=== PATIENT | female | born 1985 | race Caucasian/White ===

== ENCOUNTER 2016-07-31 16:38 | Emergency (ER) | payer BC ==
[~2016-07-31] VITALS: Ht 167.6 cm; Wt 53.0 kg
[~2016-07-31 16:38] MED LIST: BIOT10TA PO; CALNTAB PO; PROG100C PO; VITA100T15 PO
[2016-07-31 16:44] VITALS: BP 132/100; PULSE 88; RESP 16; TEMP 99.2; O2SAT 98
[2016-07-31] MEDS ORDERED: CLIN1CAP6 PO (17:49)
[2016-07-31] MEDS ORDERED: ZOFR4TAB3 SL (17:49)
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
[2016-07-31 17:58] VITALS: BP 137/95
[2016-07-31] MEDS ORDERED: ONDANSETRON ODT 4 MG TAB PO ONE (18:00)
== END 2016-07-31 18:34 | disposition home or self-care (01) ==
LOC: PHED 16:38
DX: N61.1 Abscess of the breast and nipple (principal); T63.30 Toxic effect of unspecified spider venom; T63.301D Toxic effect of unspecified spider venom, accidental (unintentional), subsequent encounter
CPT/HCPCS: 84703; 99283

== ENCOUNTER 2017-01-26 01:51 | Emergency (ER) | payer BC, OTHER ==
[~2017-01-26] VITALS: Ht 170.2 cm; Wt 50.9 kg
[~2017-01-26 01:51] MED LIST changes: +CLIN1CAP6 PO; +ZOFR4TAB3 SL
[2017-01-26 02:03] VITALS: BP 161/112; PULSE 82; RESP 18; TEMP 98.7; O2SAT 97
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
[2017-01-26] MEDS ORDERED: TETANUS/DIPHTHERIA TOXOID ADULT 0.5 ML VIAL IM ONE (02:30)
[2017-01-26 03:20] LABS: BASOPHIL # 0.1 TH/MM3 (0-0.2); BASOPHIL % 1.3 % (0.0-2.0); EOSINOPHIL # 0.1 TH/MM3 (0-0.4); HEMATOCRIT 43.3 % (35.0-46.0); HEMO FLAGS DIFF FINAL; LYMPH % 39.6 % (9.0-44.0); LYMPHOCYTE # 2.4 TH/MM3 (1.0-4.8); MEAN CELL VOLUME 98.6 FL (80.0-100.0); MEAN CORPUSCULAR HEMOGLOBIN 33.9 PG (27.0-34.0); MEAN CORPUSCULAR HGB CONC 34.4 % (32.0-36.0); MONO % 7.1 % (0.0-8.0); PLATELET COUNT 311 TH/MM3 (150-450); RED BLOOD COUNT 4.39 MIL/MM3 (4.00-5.30); RED CELL DISTRIBUTION WIDTH 12.4 % (11.6-17.2)
[2017-01-26 03:23] LABS: BACTERIA, URINE MOD /hpf; BLOOD, URINE SMALL (NEG); COMMENT (UR) CULTURE INDICATED; CULTURE IF INDICATED CULTURE INDICATED; GLUCOSE,URINE NEG (NEG); KETONE, URINE NEG (NEG); MUCUS URINE FEW /lpf (OCC); NITRITE,URINE NEG (NEG); PH, URINE 6.5 (5.0-8.5); SQUAMOUS EPITHELIAL CELL URINE 7 /hpf (0-5); URINE COLOR YELLOW (YELLW/STRAW)
[2017-01-26 03:27] LABS: AMPHETAMINE, URINE NEG (NEG); BARBITURATES, URINE NEG (NEG); COCAINE, URINE POS (NEG)
[2017-01-26] MEDS ORDERED: MACR100C2 PO (03:33)
[2017-01-26 03:40] LABS: ALT (GPT) 91 U/L (10-53); ANION GAP 11 MEQ/L (5-15); AST (GOT) 178 U/L (15-37); BICARBONATE 26.2 MEQ/L (21.0-32.0); BLOOD UREA NITROGEN 6 MG/DL (7-18); CHLORIDE 107 MEQ/L (98-107); GLOMERULAR FILTRATION RATE 89 ML/MIN (>89); POTASSIUM 3.4 MEQ/L (3.5-5.1); SODIUM (NA) 144 MEQ/L (136-145)
[2017-01-26 03:43] LABS: ALKALINE PHOSPHATASE 89 U/L (45-117); TOTAL BILIRUBIN ADULT 0.8 MG/DL (0.2-1.0)
[2017-01-26] MEDS ORDERED: NITROFURANTOIN MONOHYD MACROCR 100 MG CAP PO ONE (03:45)
[2017-01-26] MEDS ORDERED: POTASSIUM CHLORIDE 20 MEQ CONTROLLED RELEASE TAB PO ONE (04:30)
[2017-01-26 05:51] VITALS: BP 153/105; PULSE 87; RESP 16; TEMP 97.2; O2SAT 97
[2017-01-26] MEDS ORDERED: LORazepam 1 MG TAB PO PRN (13:00)
[2017-01-26] MEDS ORDERED: LORazepam 2 MG TAB PO PRN (13:00)
[2017-01-26] MEDS ORDERED: LORazepam 2 MG/ML VIAL IV PUSH PRN ×4 (13:00)
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
== END 2017-01-26 17:33 | disposition home or self-care (01) ==
LOC: NEPD 01:51 → NEPJ 17:33
DX: N30.01 Acute cystitis with hematuria (principal); R74.8 Abnormal levels of other serum enzymes; Z88.0 Allergy status to penicillin
CPT/HCPCS: 80053; 80307; 81001; 84703; 85025; 86403; 87086; 90714; 96372; 99284; J3410

== ENCOUNTER 2017-02-10 15:49 | Emergency (ER) | payer BC ==
[~2017-02-10] VITALS: Ht 167.6 cm; Wt 56.0 kg
[~2017-02-10 15:49] MED LIST changes: -BIOT10TA PO; -CALNTAB PO; -CLIN1CAP6 PO; +MACR100C2 PO; -VITA100T15 PO; -ZOFR4TAB3 SL
[2017-02-10 15:53] VITALS: BP 164/104; PULSE 104; RESP 24; TEMP 97.8; O2SAT 97
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
[2017-02-10 17:47] LABS: BACTERIA, URINE FEW /hpf; BLOOD, URINE NEG (NEG); COMMENT (UR) CULTURE INDICATED; CULTURE IF INDICATED CULTURE INDICATED; GLUCOSE,URINE NEG (NEG); KETONE, URINE 40 mg/dL (NEG); MUCUS URINE FEW /lpf (OCC); NITRITE,URINE NEG (NEG); SQUAMOUS EPITHELIAL CELL URINE 5 /hpf (0-5); TRANSITIONAL EPI CELLS, URINE 7 /hpf; URINE COLOR YELLOW (YELLW/STRAW)
[2017-02-10 18:44] LABS: ANION GAP 13 MEQ/L (5-15); AST (GOT) 135 U/L (15-37); BICARBONATE 22.5 MEQ/L (21.0-32.0); BLOOD UREA NITROGEN 6 MG/DL (7-18); CHLORIDE 98 MEQ/L (98-107); GLOMERULAR FILTRATION RATE 120 ML/MIN (>89); SODIUM (NA) 133 MEQ/L (136-145)
[2017-02-10 18:45] LABS: ALT (GPT) 89 U/L (10-53); BASOPHIL # 0.1 TH/MM3 (0-0.2); EOSINOPHIL % 0.5 % (0.0-4.0); HEMATOCRIT 42.5 % (35.0-46.0); HEMO FLAGS DIFF FINAL; LYMPH % 15.1 % (9.0-44.0); LYMPHOCYTE # 1.2 TH/MM3 (1.0-4.8); MEAN CELL VOLUME 97.1 FL (80.0-100.0); MEAN CORPUSCULAR HEMOGLOBIN 32.2 PG (27.0-34.0); MEAN CORPUSCULAR HGB CONC 33.1 % (32.0-36.0); MONO % 7.9 % (0.0-8.0); NEUT % 75.5 % (16.0-70.0); PLATELET COUNT 301 TH/MM3 (150-450); RED BLOOD COUNT 4.37 MIL/MM3 (4.00-5.30); RED CELL DISTRIBUTION WIDTH 12.7 % (11.6-17.2); WHITE BLOOD COUNT 7.9 TH/MM3 (4.0-11.0)
[2017-02-10 18:49] LABS: ALKALINE PHOSPHATASE 96 U/L (45-117); BETA HCG QUANT LESS THAN 1 MIU/ML (0-5); TOTAL BILIRUBIN ADULT 0.9 MG/DL (0.2-1.0)
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
[2017-02-10] MEDS ORDERED: KETOROLAC TROMETHAMINE 30 MG/ML (IVP) VIAL IV PUSH ONE (19:15)
[2017-02-10] MEDS ORDERED: SODIUM CHLOR 0.9% 1000 ML INJ 1,000 ML IV ONE ×2 (19:15→20:30)
[2017-02-10] MEDS ORDERED: ONDANSETRON HCL 4 MG/2 ML VIAL IV PUSH ONE (19:15)
[2017-02-10] MEDS ORDERED: POTASSIUM CHLOR 20 MEQ PREMIX 100 ML IV STA (19:16)
[2017-02-10] MEDS ORDERED: POTASSIUM CHLORIDE 10 MEQ CONTROLLED RELEASE TAB PO ONE (19:30)
[2017-02-10] MEDS ORDERED: CYAN1TAB24 PO (19:32)
[2017-02-10] MEDS ORDERED: FERR325C PO (19:32)
[2017-02-10] MEDS ORDERED: MULTTAB67 PO (19:32)
[2017-02-10] MEDS ORDERED: diphenhydrAMINE HCL 50 MG/ML VIAL IV PUSH ONE (19:45)
[2017-02-10] MEDS ORDERED: METOCLOPRAMIDE HCL 10 MG/2 ML VIAL IV PUSH ONE (19:45)
[2017-02-10 19:50] VITALS: BP 149/104; PULSE 107; RESP 16; TEMP 98.2; O2SAT 97
[2017-02-10] MEDS ORDERED: DIATRIZOATE MEGLUM/DIATRIZOATE SOD 9 ML CUP ONE (20:13)
[2017-02-10] MEDS ORDERED: IOHEXOL 350 MG/ML 10 ML VIAL (for RAD DIAG) IVCONTRAST ONE (21:44)
--- NOTE | 2017-02-10 22:07 | RADRPT ---
EXAM DATE/TIME: 02/10/2017 21:41 [facility] COMPARISON: No previous studies available for comparison. INDICATIONS : Lower abdominal pain with vomiting. IV CONTRAST: 86 cc Omnipaque 350 (iohexol) IV ORAL CONTRAST: Partial prescribed oral contrast ingested. RADIATION DOSE: 4.63 CTDIvol (mGy) MEDICAL HISTORY : Ovarian cysts. SURGICAL HISTORY : None. ENCOUNTER: Initial ACUITY: 1 day PAIN SCALE: 7/10 LOCATION: Bilateral lower quadrant TECHNIQUE: Volumetric scanning of the abdomen and pelvis was performed. Using automated exposure control and ad justment of the mA and/or kV according to patient size, radiation dose was kept as low as reasonably achievable to obtain optimal diagnostic quality images. DICOM format image data is available electro nically for review and comparison. FINDINGS: LOWER LUNGS: The visualized lower lungs are clear. LIVER: Liver is diffusely hypodense There is no dilation of the biliary tree. No calcified gallstones. SPLEEN: Normal size without lesion. PANCREAS: Within normal limits. KIDNEYS: Normal in size and shape. There is no mass, stone or hydronephrosis. ADRENAL GLANDS: Within normal limits. VASCULAR: There is no aortic aneurysm. BOWEL/MESENTERY: The stomach, small bowel, and colon demonstrate no acute abnormality. There is no free intraperitone al air or fluid. ABDOMINAL WALL: Within normal limits. RETROPERITONEUM: There is no lymphadenopathy. BLADDER: No wall thickening or mass. REPRODUCTIVE: Within normal limits. INGUINAL: There is no lymphadenopathy or hernia. MUSCULOSKELETAL: Within normal limits for patient age. CONCLUSION: 1. Advanced hepatic steatosis. 2. No acute process. Filemon Edmonds MD on February 10, 2017 at 22:00 Board Certified Radiologist. This report was verified electronically.
[2017-02-10] MEDS ORDERED: ZOFR4TAB3 SL (22:23)
[2017-02-10] MEDS ORDERED: CEPH-460 PO (22:23)
[2017-02-10] MEDS ORDERED: REGL5TAB PO (22:23)
[2017-02-10 22:40] VITALS: BP 148/84
--- NOTE | 2017-02-11 13:35 | EKG ---
Date Performed: 02/10/2017 Time Performed: 17:42:53 PTAGE: 31 years EKG: Sinus rhythm NORMAL ECG NO PREVIOUS TRACING DOCTOR: Kelly Guajardo Interpretating Date/Time 02/11/2017 13:32:14
== END 2017-02-10 22:43 | disposition home or self-care (01) ==
LOC: NEPC 15:49
DX: R10.9 Unspecified abdominal pain (principal); N30.01 Acute cystitis with hematuria; R11.2 Nausea with vomiting, unspecified; K76.0 Fatty (change of) liver, not elsewhere classified; E87.6 Hypokalemia; B96.89 Other specified bacterial agents as the cause of diseases classified elsewhere
CPT/HCPCS: 74177; 80053; 81001; 83690; 84702; 84703; 85025; 87086; 93005; 96365; 96366; 96375; 99285; J1200; J1885; J2405; J2765; J3480; J7030; Q9963; Q9967

== ENCOUNTER 2017-04-26 16:26 | Emergency (ER) | payer BC ==
[~2017-04-26 16:26] MED LIST changes: +CEPH-460 PO; +CYAN1TAB24 PO; +FERR325C PO; -MACR100C2 PO; +MULTTAB67 PO; -PROG100C PO; +REGL5TAB PO; +ZOFR4TAB3 SL
[2017-04-26 16:33] VITALS: BP 170/101; PULSE 97; RESP 20; TEMP 98.8
[2017-04-26] MEDS ORDERED: PHEN95TA (16:57)
[2017-04-26] MEDS ORDERED: CRAN250C3 (16:57)
[2017-04-26] MEDS ORDERED: CLON0.3T PO (16:57)
--- NOTE | 2017-04-26 17:02 | PD ---
HPI Chief Complaint: GI Complaint Time Seen by Provider: 17:01 Travel History International Travel<30 days: No Contact w/Intl Traveler<30days: No Traveled to known affect area: No History of Present Illness HPI the patient is 32 years old and arrives to the ER describing nausea vomiting and generalized sense of malaise for the past few days. She reports history of fairly routine alcohol drinking however after receiving a diagnosis of fatty liver about 2-1/2 months ago decided to quit drinking alcohol and has been somewhat successful until last night which she had a glass of wine. This coincides with her tapering of Klonopin with wine ingestion part of an effort to mitigate Klonopin taper. She last dose was 4 days prior and she believes that symptoms could be related to benzodiazepine withdrawal. She denies drug abuse otherwise. No vaginal bleeding vaginal discharge. She does report urinary frequency. She states last menstruation was about 2 weeks ago. History Past Medical History LMP: THIS AM : 1 Para: 0 Social History Alcohol Use: Yes (DAILY) Tobacco Use: No Allergies-Medications (Allergen,Severity, Reaction): Coded Allergies: sulfamethoxazole (Verified Allergy, Severe, Nausea/Vomiting, 04/26/17) trimethoprim (Verified Allergy, Severe, Nausea/Vomiting, 04/26/17) penicillin G (Unverified Allergy, Mild, HIVES, 04/26/17) Uncoded Allergies: CILLIN FAMILY (Allergy, Mild, 02/11/06) Reported Meds & Prescriptions Reported Meds & Active Scripts Active Reported Cranberry (Cranberry Fruit Extract) 250 Mg Capsule Unknown Dose Azo Urinary Pain Relief (Phenazopyridine HCl) 95 Mg Tab Clonidine (Clonidine HCl) 0.3 Mg Tab Unknown Dose PO BID Review of Systems Except as stated in HPI: all other systems reviewed are Neg General / Constitutional: No: Fever Physical Exam Narrative GENERAL: 32 yo F, pleasant, well nourished, well developed SKIN: Warm and dry. HEAD: Atraumatic. Normocephalic. EYES: Pupils equal and round. No scleral icterus. No injection or drainage. ENT: No nasal bleeding or discharge. Mucous membranes pink and moist. NECK: Trachea midline. No JVD. CARDIOVASCULAR: Regular rate and rhythm. RESPIRATORY: No accessory muscle use. Clear to auscultation. Breath sounds equal bilaterally. GASTROINTESTINAL: Abdomen soft, non-tender, nondistended. Hepatic and splenic margins not palpable. MUSCULOSKELETAL: Extremities without clubbing, cyanosis, or edema. No obvious deformities. NEUROLOGICAL: Awake and alert. No obvious cranial nerve deficits. Motor grossly within normal limits. Five out of 5 muscle strength in the arms and legs. Normal speech. PSYCHIATRIC: Appropriate mood and affect; insight and judgment normal. Data Data Last Documented VS Vital Signs Date Time Temp Pulse Resp B/P (MAP) Pulse Ox O2 Delivery O2 Flow Rate FiO2 04/26/17 16:33 98.8 97 20 170/101 (124) VS reviewed Orders Orders Diazepam (Valium) (04/26/17 17:15) Urinalysis - C+S If Indicated (04/26/17 17:01) Iv Access Insert/Monitor (04/26/17 17:17) Sodium Chlor 0.9% 1000 Ml Inj (Ns 1000 M (04/26/17 17:17) Sodium Chlor 0.9% 1000 Ml Inj (Ns 1000 M (04/26/17 17:30) Ondansetron Inj (Zofran Inj) (04/26/17 17:30) Urine Culture (04/26/17 17:07) Labs Laboratory Tests Test 04/26/17 17:07 Urine Collection Type CLEAN CATCH Urine Color YELLOW Urine Turbidity SLIGHT Urine pH 6.0 Urine Specific [place] 1.022 Urine Protein 100 mg/dL Urine Glucose (UA) NEG mg/dL Urine Ketones 80 OR GREATER mg/dL Urine Occult Blood LARGE Urine Nitrite NEG Urine Bilirubin NEG Urine Leukocyte Esterase NEG Urine RBC 10-14 /hpf Urine WBC 9-14 /hpf Urine WBC Clumps OCC Urine Squamous Epithelial Cells 6-8 /hpf Urine Transitional Epithelial Cells 0-5 /hpf Urine Amorphous Sediment FEW Microscopic Urinalysis Comment CULTURE INDICATED Urine Collection Time 1707 MDM Medical Decision Making Medical Screen Exam Complete: Yes Emergency Medical Condition: Yes Medical Record Reviewed: Yes Differential Diagnosis Alcoholism, benzodiazepine withdrawal, urinary tract infection, intrauterine Narrative Course Urinalysis shows a UTI Urine is negative The patient arrives with nausea vomiting and urinary tract infection. Cipro prescription. She believes some of IT may be related to withdrawing from Klonopin. Patient verbalizes intent to continue abstinence from benzodiazepines and alcohol. She was encouraged to continue to do so. Return precautions discussed. Diagnosis Primary Impression: UTI (urinary tract infection) Qualified Codes: N30.00 - Acute cystitis without hematuria Additional Instructions: IF YOU DEVELOP A FEVER OR IF NAUSEA AND VOMITING SYMPTOMS DON'T IMPROVE PLEASE RETURN TO THE ER WITHOUT DELAY. Med/Other Pt SpecificInfo: Prescription(s) given Scripts Ciprofloxacin (Cipro) 250 Mg Tab 250 MG PO BID for Infection for 3 Days, #6 TAB 0 Refills Prov: Jhony House MD 04/26/17 Disposition: 01 DISCHARGE HOME Condition: Stable Jhony House MD Apr 26, 2017 17:02
[2017-04-26 17:13] LABS: BLOOD, URINE LARGE (NEG); GLUCOSE,URINE NEG (NEG); KETONE, URINE 80 OR GREATER mg/dL (NEG); NITRITE,URINE NEG (NEG)
[2017-04-26 17:14] LABS: METHOD OF COLLECTION CLEAN CATCH; URINE COLOR YELLOW (YELLW/STRAW)
[2017-04-26] MEDS ORDERED: DIAZEPAM 5 MG TAB PO ONE (17:15)
[2017-04-26] MEDS ORDERED: SODIUM CHLOR 0.9% 1000 ML INJ 1,000 ML IV SCH (17:17)
[2017-04-26] MEDS ORDERED: SODIUM CHLOR 0.9% 1000 ML INJ 1,000 ML IV ONE (17:30)
[2017-04-26] MEDS ORDERED: ONDANSETRON HCL 4 MG/2 ML VIAL IV PUSH ONE (17:30)
[2017-04-26 17:33] LABS: COMMENT (UR) CULTURE INDICATED; COMMENT2 (UR) MUCOUS PRESENT; CULTURE IF INDICATED CULTURE INDICATED; TRANSITIONAL EPI CELLS, URINE 0-5 /hpf
[2017-04-26] MEDS ORDERED: CIPR250T52 PO (17:47)
[2017-04-26 17:55] VITALS: BP 148/100; PULSE 87; RESP 16; TEMP 98.7; O2SAT 97
[2017-04-26] MEDS ORDERED: REGL5TAB PO (18:30)
== END 2017-04-26 18:49 | disposition home or self-care (01) ==
LOC: PHED 16:26
DX: N30.00 Acute cystitis without hematuria (principal); B96.89 Other specified bacterial agents as the cause of diseases classified elsewhere
CPT/HCPCS: 81001; 87086; 96361; 96374; 99284; J2405; J7030

== ENCOUNTER 2017-06-06 00:51 | Emergency (ER) | payer BC ==
[~2017-06-06] VITALS: Ht 167.6 cm; Wt 55.5 kg
[~2017-06-06 00:51] MED LIST changes: -CEPH-460 PO; +CIPR250T52 PO; +CLON0.3T PO; +CRAN250C3; -CYAN1TAB24 PO; -FERR325C PO; -MULTTAB67 PO; +PHEN95TA; -ZOFR4TAB3 SL
[2017-06-06 01:01] VITALS: BP 136/96; PULSE 77; RESP 18; TEMP 97.9; O2SAT 97
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
[2017-06-06] MEDS ORDERED: DOXYCYCLINE HYCLATE 100 MG CAP PO ONE (02:15)
[2017-06-06] MEDS ORDERED: SILVER SULFADIAZINE 1% CR 50 GM JAR TOPICAL ONE (02:15)
[2017-06-06] MEDS ORDERED: TETANUS/DIPHTHERIA TOXOID ADULT 0.5 ML VIAL IM ONE (02:15)
[2017-06-06] MEDS ORDERED: DOXY100C PO (02:22)
[2017-06-06] MEDS ORDERED: CLIN300C5 PO (02:28)
[2017-06-06] MEDS ORDERED: CLINDAMYCIN 150 MG CAP PO ONE (02:30)
[2017-06-06 02:48] VITALS: BP 131/86
[2017-06-06] MEDS ORDERED: MACR100C2 PO (17:27)
== END 2017-06-06 03:00 | disposition home or self-care (01) ==
LOC: PHED 00:51
DX: T24.212A Burn of second degree of left thigh, initial encounter (principal); L08.9 Local infection of the skin and subcutaneous tissue, unspecified; I88.9 Nonspecific lymphadenitis, unspecified; Z23 Encounter for immunization; Z86.59 Personal history of other mental and behavioral disorders; X10.2XXA Contact with fats and cooking oils, initial encounter; Y93.G3 Activity, cooking and baking
CPT/HCPCS: 16020; 90471; 90714

== ENCOUNTER 2017-06-06 15:17 | Inpatient (IN) | payer BC, OTHER ==
[~2017-06-06] VITALS: Ht 167.6 cm; Wt 56.2 kg
[~2017-06-06 15:17] MED LIST changes: +CLIN300C5 PO; +DOXY100C PO
[2017-06-06 17:02] LABS: AUTOMATED NEUTROPHIL # 3.6 TH/MM3 (1.8-7.7); BASOPHIL % 0.8 % (0.0-2.0); EOSINOPHIL # 0.2 TH/MM3 (0-0.4); HEMO FLAGS DIFF FINAL; LYMPH % 25.9 % (9.0-44.0); LYMPHOCYTE # 1.4 TH/MM3 (1.0-4.8); MEAN CORPUSCULAR HEMOGLOBIN 33.7 PG (27.0-34.0); MEAN CORPUSCULAR HGB CONC 35.1 % (32.0-36.0); MONO % 4.5 % (0.0-8.0); NEUT % 65.8 % (16.0-70.0); PLATELET COUNT 290 TH/MM3 (150-450); RED BLOOD COUNT 3.65 MIL/MM3 (4.00-5.30); RED CELL DISTRIBUTION WIDTH 13.1 % (11.6-17.2); WHITE BLOOD COUNT 5.4 TH/MM3 (4.0-11.0)
[2017-06-06 17:17] LABS: ANION GAP 11 MEQ/L (5-15); AST (GOT) 55 U/L (15-37); BICARBONATE 23.9 MEQ/L (21.0-32.0); BLOOD UREA NITROGEN 8 MG/DL (7-18); CHLORIDE 111 MEQ/L (98-107); GLOMERULAR FILTRATION RATE 98 ML/MIN (>89); POTASSIUM 3.7 MEQ/L (3.5-5.1); SODIUM (NA) 146 MEQ/L (136-145)
[2017-06-06 17:17] LABS: BACTERIA, URINE MOD /hpf; BLOOD, URINE TRACE (NEG); COMMENT (UR) CULTURE INDICATED; CULTURE IF INDICATED CULTURE INDICATED; GLUCOSE,URINE NEG (NEG); HYALINE CAST, URINE 21 /lpf (RARE); KETONE, URINE NEG (NEG); MUCUS URINE FEW /lpf (OCC); NITRITE,URINE NEG (NEG); PH, URINE 5.5 (5.0-8.5); SQUAMOUS EPITHELIAL CELL URINE 24 /hpf (0-5); URINE COLOR LIGHT-YELLOW (YELLW/STRAW)
[2017-06-06 17:18] LABS: ALT (GPT) 55 U/L (10-53)
[2017-06-06] MEDS ORDERED: MACR100C2 PO (17:27)
[2017-06-06 17:28] LABS: ALKALINE PHOSPHATASE 68 U/L (45-117); TOTAL BILIRUBIN ADULT 0.5 MG/DL (0.2-1.0)
[2017-06-06] MEDS ORDERED: IBUPROFEN 800 MG TAB PO ONE (17:45)
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
[2017-06-06] MEDS ORDERED: ALUMINUM/MAGNESIUM/SIMETH 30 ML CUP PO PRN (21:00)
[2017-06-06] MEDS ORDERED: diphenhydrAMINE HCL 50 MG CAP PO PRN (21:00)
[2017-06-06] MEDS ORDERED: MAGNESIUM HYDROXIDE SUSP 30 ML CUP PO PRN (21:00)
[2017-06-06 22:22] VITALS: BP 145/95; PULSE 76; RESP 17; TEMP 98.4; O2SAT 98
[2017-06-06] MEDS: hydrOXYzine HCL 50 MG TAB PO PRN (22:45)
[2017-06-06] MEDS: ACETAMINOPHEN 325 MG TAB PO PRN (22:45)
[2017-06-07 06:02] VITALS: BP 125/74; PULSE 62; RESP 18; TEMP 98; O2SAT 96
[2017-06-07] MEDS: NITROFURANTOIN MONOHYD MACROCR 100 MG CAP PO SCH ×2 (09:12→21:58)
[2017-06-07] MEDS ORDERED: LORazepam 2 MG/ML VIAL IV PUSH PRN ×3 (10:32)
[2017-06-07] MEDS ORDERED: LORazepam 2 MG TAB PO PRN (10:32)
[2017-06-07] MEDS ORDERED: FLUMAZENIL 0.5 MG/5 ML VIAL IV PUSH PRN (10:45)
[2017-06-07] MEDS ORDERED: LORazepam 1 MG TAB PO PRN (10:45)
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
[2017-06-07 11:49] LABS: ANION GAP 10 MEQ/L (5-15); BICARBONATE 23.8 MEQ/L (21.0-32.0); BLOOD UREA NITROGEN 8 MG/DL (7-18); CHLORIDE 104 MEQ/L (98-107); GLOMERULAR FILTRATION RATE 112 ML/MIN (>89); POTASSIUM 3.5 MEQ/L (3.5-5.1); SODIUM (NA) 138 MEQ/L (136-145)
[2017-06-07 11:52] LABS: HDL CHOLESTEROL 121.6 MG/DL (40.0-60.0); LDL CHOLESTEROL 43 MG/DL (0-99)
[2017-06-07] MEDS: CLINDAMYCIN 150 MG CAP PO SCH ×3 (12:16→23:10)
[2017-06-07] MEDS: ACETAMINOPHEN 325 MG TAB PO PRN ×2 (16:43→21:58)
[2017-06-07] MEDS: hydrOXYzine HCL 50 MG TAB PO PRN (17:44)
[2017-06-07 18:29] VITALS: BP 131/82; PULSE 61; RESP 18; TEMP 98.2; O2SAT 97
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
[2017-06-07] MEDS: MIRTAZAPINE 15 MG TAB PO SCH (21:56)
[2017-06-07] MEDS: BACITRACIN TOP OINT 15 GM TUBE TOPICAL SCH (22:54)
[2017-06-08 06:00] VITALS: BP 104/60; PULSE 46; RESP 16; TEMP 98; O2SAT 99
[2017-06-08] MEDS: CLINDAMYCIN 150 MG CAP PO SCH ×2 (06:23→11:38)
[2017-06-08] MEDS: NITROFURANTOIN MONOHYD MACROCR 100 MG CAP PO SCH (08:22)
[2017-06-08] MEDS: BACITRACIN TOP OINT 15 GM TUBE TOPICAL SCH ×2 (08:22→21:45)
--- NOTE | 2017-06-08 10:37 | HHI.PYPN ---
Subjective Remarks This is a request for second opinion. Admission note was reviewed and I agree with the contents. Patient was seen and case was discussed with nursing. Per nursing patient is seclusive all day. She continues to minimize her actions during the interview and is quite vague throughout. Cannot give me a clear reason why she was cutting. Says the argument with her happened after the cutting. Her mood is described as anxious. Says she is eating and sleeping well. Tolerating medications well Mental Status Examination Appearance: Appropriate Consciousness: Alert Orientation: x4 Motor Activity: Normal gait Speech: Unremarkable Language: Adequate Fund of Knowledge: Adequate Attention and Concentration: Adequate Memory: Unremarkable Mood: Anxious Affect: Appropriate Thought Process & Associations: Intact Thought Content: Appropriate Hallucination Type: None Delusion Type: None Suicidal Ideation: No Suicidal Plan: No Suicidal Intention: No Homicidal Ideation: No Homicidal Plan: No Homicidal Intention: No Insight: Poor Judgment: Poor Results Labs Date/Time Source Procedure Growth Status 06/06/17 15:20 Urine Clean Catch Urine Culture - Preliminary IMMATURE GROWTH - REINCUBATE Resulted 06/07/17 22:00 Wound Thigh Gram Stain - Final Resulted 06/07/17 22:00 Wound Thigh Wound Culture Pending Resulted Vitals/IOs Vital Signs Date Time Temp Pulse Resp B/P (MAP) Pulse Ox O2 Delivery O2 Flow Rate FiO2 06/08/17 06:00 98.0 46 16 104/60 (75) 99 Assessment & Plan Problem List: (1) Major depressive disorder, recurrent ICD Codes: F33.9 - Major depressive disorder, recurrent, unspecified Assessment & Plan I will add an SSRI. I agree with the first opinion to continue petition. Criteria include cutting and suicidal ideation before admission Justification for Cont. Inpt. Patient will decompensate in a less restrictive setting Jim Mcelroy DO Jun 08, 2017 10:37
[2017-06-08 10:48] LABS: HEMOGLOBIN A1a 1.3 %; HEMOGLOBIN A1b 1.3 %; HEMOGLOBIN Ao 87.1 %; HEMOGLOBIN F 0.2 %; HEMOGLOBIN LA1C 1.6 %; HEMOGLOBIN P3 3.1 %
[2017-06-08] MEDS: ESCITALOPRAM OXALATE 10 MG TAB PO SCH (11:38)
[2017-06-08] MEDS: hydrOXYzine HCL 50 MG TAB PO PRN (14:56)
[2017-06-08] MEDS: ACETAMINOPHEN 325 MG TAB PO PRN (14:56)
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
[2017-06-08 18:37] VITALS: BP 128/78; PULSE 64; RESP 18; TEMP 97; O2SAT 100
[2017-06-08] MEDS: MIRTAZAPINE 15 MG TAB PO SCH (21:44)
[2017-06-09 05:56] VITALS: BP 116/64; PULSE 53; RESP 17; TEMP 97.3; O2SAT 99
[2017-06-09] MEDS: ESCITALOPRAM OXALATE 10 MG TAB PO SCH (10:01)
[2017-06-09] MEDS: ACETAMINOPHEN 325 MG TAB PO PRN (10:02)
[2017-06-09] MEDS: hydrOXYzine HCL 50 MG TAB PO PRN (10:02)
[2017-06-09] MEDS: BACITRACIN TOP OINT 15 GM TUBE TOPICAL SCH (10:03)
--- NOTE | 2017-06-09 14:08 | PD.TTN ---
Patient Problems 1. Discharge planning 2. Medication compliance 3. Knowledge deficit 4. Lack of coping skills Progress Toward Goals Provider Present: Dr. Chapo Whiting Provider Input: Dr. Whiting's treatment team met to discuss patient's discharged, medicaton and treatment plan. Patient does not meet criteria under the Alfonso Act and will be discharged home. Nurse(s) Input: Patient's nurse Ken reports patient is medication compliant, no behavioral problems on unit, cooperative, pleasant, Psychiatric Counselors Present: JAYRO BacaMelina Psych Therapist Input: Patient seen today. Patient is being discharged to home. Patient's family member will provide transportation. Patient made good eye contact. Patient's speech is clear, pressured, excessive. Patient denies suicidal and homicidal ideation. Patient will be set up with a psychiatric follow up when discharged. Group Spec/RT/OT/DEVLIN Present: MAYA Ma Group Spec/RT/OT/DEVLIN Input: Patient attended group activities since her admission 06/06/17 Nelida Rogers Jun 09, 2017 14:08
[2017-06-09] MEDS ORDERED: MACR100C2 PO (15:47)
[2017-06-09] MEDS ORDERED: ESCI10TA PO (15:47)
[2017-06-09] MEDS ORDERED: MIRTA15 PO (15:47)
[2017-06-09] MEDS ORDERED: CLIN300C5 PO (15:47)
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
[2017-06-10] MEDS ORDERED: NITROFURANTOIN MONOHYD MACROCR 100 MG CAP PO SCH (19:00)
== END 2017-06-09 17:40 | disposition home or self-care (01) | DRG 885 ==
LOC: NEDAMB 15:17 → NEDA 21:02 → H260 22:15
PROVIDERS: ADMIT Psychiatry & Neurology Psychiatry; ATTEND Psychiatry & Neurology Psychiatry
PROC: 0HQFXZZ Repair Right Hand Skin, External Approach (ICD-10-PCS; principal; 2017-06-06)
PROC: 0HQDXZZ Repair Right Lower Arm Skin, External Approach (ICD-10-PCS; 2017-06-06)
PROC: 0HQGXZZ Repair Left Hand Skin, External Approach (ICD-10-PCS; 2017-06-06)
PROC: 0HQEXZZ Repair Left Lower Arm Skin, External Approach (ICD-10-PCS; 2017-06-06)
DX: F33.1 Major depressive disorder, recurrent, moderate (principal); S11.81XA Laceration without foreign body of other specified part of neck, initial encounter; N39.0 Urinary tract infection, site not specified; S61.511A Laceration without foreign body of right wrist, initial encounter; T24.212A Burn of second degree of left thigh, initial encounter; S61.512A Laceration without foreign body of left wrist, initial encounter; S61.411A Laceration without foreign body of right hand, initial encounter; S61.412A Laceration without foreign body of left hand, initial encounter; F60.9 Personality disorder, unspecified; F43.25 Adjustment disorder with mixed disturbance of emotions and conduct; F10.129 Alcohol abuse with intoxication, unspecified; X78.9XXA Intentional self-harm by unspecified sharp object, initial encounter; Y04.0XXA Assault by unarmed brawl or fight, initial encounter; Z63.0 Problems in relationship with spouse or partner; Z88.0 Allergy status to penicillin; Z88.2 Allergy status to sulfonamides; Z91.5 Personal history of self-harm
CPT/HCPCS: 73120; 80048; 80053; 80061; 80307; 81001; 83036; 84443; 84703; 85025; 87070; 87086; 87205; 99285

== ENCOUNTER 2017-06-20 14:21 | Inpatient (IN) | payer BC ==
[~2017-06-20] VITALS: Ht 167.6 cm; Wt 54.6 kg
[2017-06-20] VITALS (11 sets, daily range): BP systolic 133–168; BP diastolic 84–109; PULSE 85–102; RESP 16–24; TEMP 98–98.7; O2SAT 96–99
[~2017-06-20 14:21] MED LIST changes: -CIPR250T52 PO; -CLON0.3T PO; -CRAN250C3; -DOXY100C PO; +ESCI10TA PO; +MACR100C2 PO; +MIRTA15 PO; -PHEN95TA; -REGL5TAB PO
[2017-06-20] MEDS ORDERED: LORazepam 2 MG TAB PO PRN (15:00)
[2017-06-20] MEDS ORDERED: SODIUM CHLOR 0.9% 1000 ML INJ 1,000 ML IV ONE (15:00)
[2017-06-20] MEDS ORDERED: ONDANSETRON HCL 4 MG/2 ML VIAL IV PUSH ONE (15:00)
[2017-06-20] MEDS ORDERED: FLUMAZENIL 0.5 MG/5 ML VIAL IV PUSH PRN (15:00)
[2017-06-20] MEDS ORDERED: SODIUM CHLORIDE 0.9% FLUSH 10 ML FLUSH IVF PRN (15:00)
[2017-06-20] MEDS ORDERED: LORazepam 1 MG TAB PO PRN (15:00)
[2017-06-20] MEDS ORDERED: LORazepam 2 MG/ML VIAL IV PUSH PRN ×4 (15:00)
--- NOTE | 2017-06-20 15:02 | PD ---
HPI Chief Complaint: Chest Pain Time Seen by Provider: 14:31 Travel History International Travel<30 days: No Contact w/Intl Traveler<30days: No Traveled to known affect area: No History of Present Illness HPI 32-year-old female presents with central sharp chest pain over the past couple days with associated vomiting, shaking all over and general ill feeling after stopping alcohol 2 days ago. She states she has been drinking heavily for multiple years and has drank really heavy over the past week. She denies any other concurrent complaints. She specifically denies any suicidal ideation. She feels worse when she moves around. She denies other modifying factors. She states that she is found up multiple times. PFSH Past Medical History Depression: Yes Cancer: No Cardiovascular Problems: No Diabetes: No Diminished Hearing: No Endocrine: No Gastrointestinal Disorders: No Genitourinary: No Headaches: No Hepatitis: No Hiatal Hernia: No Hypertension: No Immune Disorder: No Musculoskeletal: No Neurologic: No Psychiatric: Yes (Hx of treatment for depression and anxiety) Respiratory: No Thyroid Disease: No ?: Unknown LMP: 2 weeks ago : 1 Para: 0 Miscarriage: 0 : 0 Ovarian Cysts: Yes Past Surgical History AICD: No Body Medical Devices: OFELIA BREAST IMPLANTS Ear Surgery: No Eye Surgery: No Gynecologic Surgery: No Joint Replacement: No Oral Surgery: No Pacemaker: No Thoracic Surgery: Yes (BREAST AUGMENTATION) Social History Alcohol Use: No (denies) Tobacco Use: No Substance Use: No Allergies-Medications (Allergen,Severity, Reaction): Coded Allergies: sulfamethoxazole (Verified Allergy, Severe, Nausea/Vomiting, 06/06/17) trimethoprim (Verified Allergy, Severe, Nausea/Vomiting, 06/06/17) penicillin G (Unverified Allergy, Mild, HIVES, 06/06/17) Uncoded Allergies: CILLIN FAMILY (Allergy, Mild, 02/11/06) Reported Meds & Prescriptions Reported Meds & Active Scripts Active Mirtazapine 15 Mg Tab 15 Mg PO HS Escitalopram (Escitalopram Oxalate) 10 Mg Tab 10 Mg PO DAILY Macrobid (Nitrofurantoin Monohydrate Macrocrystals) 100 Mg Capsule 100 Mg PO BID 7 Days Clindamycin (Clindamycin HCl) 300 Mg Cap 300 Mg PO Q6H 10 Days Review of Systems Except as stated in HPI: all other systems reviewed are Neg Physical Exam Narrative GENERAL: Well-nourished, well-developed patient. Patient with resting tremor noted SKIN: Warm and dry. HEAD: Normocephalic and atraumatic. EYES: No injection or drainage. ENT: No nasal drainage noted. NECK: Supple, trachea midline. CARDIOVASCULAR: Regular rate and rhythm RESPIRATORY: Breath sounds equal bilaterally. No accessory muscle use. GASTROINTESTINAL: Abdomen soft, non-tender, nondistended. EXTREMITIES: No edema. NEUROLOGICAL: Awake and alert. Motor and sensory grossly within normal limits. Normal speech. Data Data Last Documented VS Vital Signs Date Time Temp Pulse Resp B/P (MAP) Pulse Ox O2 Delivery O2 Flow Rate FiO2 06/20/17 15:39 89 22 154/100 (118) 98 Room Air 150/104 (119) 06/20/17 15:35 98.7 Orders Orders Electrocardiogram (06/20/17 14:51) Ckmb (Isoenzyme) Profile (06/20/17 14:51) Complete Blood Count With Diff (06/20/17 14:51) Comprehensive Metabolic Panel (06/20/17 14:51) Magnesium (Mg) (06/20/17 14:51) Prothrombin Time / Inr (Pt) (06/20/17 14:51) Act Partial Throm Time (Ptt) (06/20/17 14:51) Troponin I (06/20/17 14:51) Lipase (06/20/17 14:51) Chest, Single Ap (06/20/17 14:51) Ecg Monitoring (06/20/17 14:51) Bilateral Bp Monitoring (06/20/17 14:51) Iv Access Insert/Monitor (06/20/17 14:51) Oximetry (06/20/17 14:51) Sodium Chloride 0.9% Flush (Ns Flush) (06/20/17 15:00) Ed Urine Pregnancytest Poc (06/20/17 14:51) Alcohol (Ethanol) (06/20/17 14:51) Drug Screen, Random Urine (06/20/17 14:51) Alcohol Withdrawal Asmt-Ciwa ONCE (06/20/17 14:51) Flumazenil Inj (Romazicon Inj) (06/20/17 15:00) Lorazepam (Ativan) (06/20/17 15:00) Lorazepam Inj (Ativan Inj) (06/20/17 15:00) Lorazepam (Ativan) (06/20/17 15:00) Lorazepam Inj (Ativan Inj) (06/20/17 15:00) Lorazepam Inj (Ativan Inj) (06/20/17 15:00) Lorazepam Inj (Ativan Inj) (06/20/17 15:00) Ondansetron Inj (Zofran Inj) (06/20/17 15:00) Sodium Chlor 0.9% 1000 Ml Inj (Ns 1000 M (06/20/17 15:00) Admit Order (Ed Use Only) (06/20/17 15:56) Labs Laboratory Tests Test 06/20/17 15:00 White Blood Count 10.9 TH/MM3 Red Blood Count 3.81 MIL/MM3 Hemoglobin 12.3 GM/DL Hematocrit 36.5 % Mean Corpuscular Volume 95.8 FL Mean Corpuscular Hemoglobin 32.2 PG Mean Corpuscular Hemoglobin Concent 33.6 % Red Cell Distribution Width 12.7 % Platelet Count 285 TH/MM3 Mean Platelet Volume 7.3 FL Neutrophils (%) (Auto) 92.4 % Lymphocytes (%) (Auto) 4.0 % Monocytes (%) (Auto) 3.4 % Eosinophils (%) (Auto) 0.0 % Basophils (%) (Auto) 0.2 % Neutrophils # (Auto) 10.1 TH/MM3 Lymphocytes # (Auto) 0.4 TH/MM3 Monocytes # (Auto) 0.4 TH/MM3 Eosinophils # (Auto) 0.0 TH/MM3 Basophils # (Auto) 0.0 TH/MM3 CBC Comment DIFF FINAL Differential Comment Prothrombin Time 10.8 SEC Prothromb Time International Ratio 1.1 RATIO Activated Partial Thromboplast Time 22.4 SEC Blood Urea Nitrogen 9 MG/DL Creatinine 0.74 MG/DL Random Glucose 187 MG/DL Total Protein 8.6 GM/DL Albumin 4.3 GM/DL Calcium Level 9.2 MG/DL Magnesium Level 1.6 MG/DL Alkaline Phosphatase 86 U/L Aspartate Amino Transf (AST/SGOT) 96 U/L Alanine Aminotransferase (ALT/SGPT) 63 U/L Total Bilirubin 2.6 MG/DL Sodium Level 132 MEQ/L Potassium Level 3.7 MEQ/L Chloride Level 97 MEQ/L Carbon Dioxide Level 19.9 MEQ/L Anion Gap 15 MEQ/L Estimat Glomerular Filtration Rate 92 ML/MIN Total Creatine Kinase 84 U/L Troponin I LESS THAN 0.02 NG/ML Lipase 294 U/L Urine Opiates Screen NEG Urine Barbiturates Screen NEG Urine Amphetamines Screen NEG Urine Benzodiazepines Screen NEG Urine Cocaine Screen NEG Urine Cannabinoids Screen NEG Ethyl Alcohol Level LESS THAN 3 MG/DL MDM Medical Decision Making Medical Screen Exam Complete: Yes Emergency Medical Condition: Yes Medical Record Reviewed: Yes (past history confirm, recent Alfonso act admission noted) Interpretation(s) CBC & BMP Diagram 06/20/17 15:00 Total Protein 8.6 H, Albumin 4.3, Calcium Level 9.2, Magnesium Level 1.6, Alkaline Phosphatase 86, Aspartate Amino Transf (AST/SGOT) 96 H, Alanine Aminotransferase (ALT/SGPT) 63 H, Total Bilirubin 2.6 H Last 24 hours Impressions Chest X-Ray 06/20/17 1451 Signed Impressions: Service Date/Time: Tuesday, June 20, 2017 15:00 - CONCLUSION: 1. No acute cardiopulmonary disease. Ron Louis MD Differential Diagnosis Alcohol withdrawal, pancreatitis, gastritis, musculoskeletal, atypical cardiac Narrative Course Will check blood work, chest x-ray and placed on alcohol withdrawal protocol while giving Zofran and IV fluids patient updated and agrees to admit Physician Communication Physician Communication dr reed states to admit to the floor Diagnosis Primary Impression: Alcohol withdrawal Qualified Codes: F10.239 - Alcohol dependence with withdrawal, unspecified Additional Impression: Nausea & vomiting Qualified Codes: R11.2 - Nausea with vomiting, unspecified Admitting Information Admitting Physician Requests: Admit Mana Borges MD Jun 20, 2017 15:02
--- NOTE | 2017-06-20 15:19 | RADRPT ---
EXAM DATE/TIME: 06/20/2017 15:00 [facility] COMPARISON: No previous studies available for comparison. INDICATIONS : Chest pain MEDICAL HISTORY : Ovarian cysts SURGICAL HISTORY : None. ENCOUNTER: Initial ACUITY: 1 day PAIN SCORE: 4/10 LOCATION: Bilateral chest FINDINGS: A single view of the chest demonstrates the lungs to be symmetrically aerated without evidence of mas s, infiltrate or effusion. The cardiomediastinal contours are unremarkable. Osseous structures are intact. CONCLUSION: 1. No acute cardiopulmonary disease. Ron Louis MD on June 20, 2017 at 15:17 Board Certified Radiologist. This report was verified electronically.
[2017-06-20 15:21] LABS: AUTOMATED NEUTROPHIL # 10.1 TH/MM3 (1.8-7.7); BASOPHIL % 0.2 % (0.0-2.0); HEMATOCRIT 36.5 % (35.0-46.0); HEMOGLOBIN 12.3 GM/DL (11.6-15.3); LYMPHOCYTE # 0.4 TH/MM3 (1.0-4.8); MEAN CELL VOLUME 95.8 FL (80.0-100.0); MEAN CORPUSCULAR HEMOGLOBIN 32.2 PG (27.0-34.0); MEAN CORPUSCULAR HGB CONC 33.6 % (32.0-36.0); MEAN PLATELET VOLUME 7.3 FL (7.0-11.0); MONO % 3.4 % (0.0-8.0); MONOCYTE # 0.4 TH/MM3 (0-0.9); NEUT % 92.4 % (16.0-70.0); PLATELET COUNT 285 TH/MM3 (150-450); RED BLOOD COUNT 3.81 MIL/MM3 (4.00-5.30); RED CELL DISTRIBUTION WIDTH 12.7 % (11.6-17.2); WHITE BLOOD COUNT 10.9 TH/MM3 (4.0-11.0)
[2017-06-20 15:26] LABS: CHLORIDE 97 MEQ/L (98-107); SODIUM (NA) 132 MEQ/L (136-145)
[2017-06-20 15:31] LABS: ALBUMIN 4.3 GM/DL (3.4-5.0); BICARBONATE 19.9 MEQ/L (21.0-32.0); CALCIUM 9.2 MG/DL (8.5-10.1); GLUCOSE,RANDOM 187 MG/DL (74-106); LIPASE 294 U/L (73-393); MAGNESIUM 1.6 MG/DL (1.5-2.5)
[2017-06-20 15:32] LABS: BLOOD UREA NITROGEN 9 MG/DL (7-18)
[2017-06-20 15:34] LABS: ALT (GPT) 63 U/L (10-53); AST (GOT) 96 U/L (15-37); CREATININE 0.74 MG/DL (0.50-1.00); GLOMERULAR FILTRATION RATE 92 ML/MIN (>89)
[2017-06-20 15:36] LABS: TOTAL BILIRUBIN ADULT 2.6 MG/DL (0.2-1.0); TOTAL PROTEIN 8.6 GM/DL (6.4-8.2)
[2017-06-20 15:37] LABS: ALKALINE PHOSPHATASE 86 U/L (45-117)
[2017-06-20 15:40] LABS: TROPONIN I LESS THAN 0.02 NG/ML (0.02-0.05)
[2017-06-20 15:54] LABS: INTERNATIONAL NORMALIZED RATIO 1.1 RATIO; PROTHROMBIN TIME - PATIENT 10.8 SEC (9.8-11.6)
--- NOTE | 2017-06-20 17:12 | HHI.HP ---
[facility] No Primary Care Physician Admission Diagnosis Alcohol withdrawal Diagnoses: Chief Complaint: Alcohol withdrawal symptoms Travel History International Travel<30 Days: No Contact w/Intl Traveler <30 Da: No Traveled to Known Affected Are: No History of Present Illness Written by Jenn Phelps, acting as scribe for Dr. Miller on 06/20/17 at 17:03. Ms. Wells is a 32-year-old female patient with a known medical history of alcohol abuse. Patient states that she has been vomiting x 2 days continually. Admits to drinking 10-15 shots of hard liquor per day. Does admit to chronic anxiety with PTSD. There are presence of tremors. Positive for present nausea. Does admit to some chest discomfort that has almost completely resolved. Denies any recent illness including fever, chills, headache, abdominal pain, vomiting or diarrhea. Denies any other medical history. Admits to wanting to quit drinking and has plans to move up to [place] to receive treatment. Review of Systems Constitutional: COMPLAINS OF: Diaphoretic episodes, DENIES: Fever, Chills, Change in appetite Eyes: DENIES: Blurred vision Respiratory: DENIES: Cough, Shortness of breath Cardiovascular: COMPLAINS OF: Chest pain Gastrointestinal: DENIES: Abdominal pain, Bloody stools, Constipation, Diarrhea , Nausea, Vomiting Neurologic: COMPLAINS OF: Tremor Psychiatric: COMPLAINS OF: Anxiety Except as stated in HPI: all other systems reviewed are Neg Past Family Social History Past Medical History Depression Anxiety Alcohol abuse Past Surgical History Bilateral breast implants Reported Medications Active No Active Prescriptions or Reported Medications Allergies: Coded Allergies: sulfamethoxazole (Verified Allergy, Severe, Nausea/Vomiting, 06/06/17) trimethoprim (Verified Allergy, Severe, Nausea/Vomiting, 06/06/17) penicillin G (Unverified Allergy, Mild, HIVES, 06/06/17) Uncoded Allergies: CILLIN FAMILY (Allergy, Mild, 02/11/06) Active Ordered Medications Current Medications Medications (Trade) Dose Ordered Sig/Alejandro Route Start Time Stop Time Status Last Admin (NS Flush) 2 ml UNSCH PRN IVF 12/29/17 15:00 (Romazicon Inj) 0.2 mg Q1M PRN IV PUSH 06/20/17 15:00 (Ativan) 1 mg Q4H PRN PO 06/20/17 15:00 (Ativan Inj) 1 mg Q4H PRN IV PUSH 06/20/17 15:00 06/20/17 15:04 (Ativan) 2 mg Q2H PRN PO 06/20/17 15:00 06/20/17 16:25 (Ativan Inj) 2 mg Q2H PRN IV PUSH 06/20/17 15:00 (Ativan Inj) 2 mg Q1H PRN IV PUSH 06/20/17 15:00 (Ativan Inj) 2 mg Q15M PRN IV PUSH 06/20/17 15:00 Family History Paternal medical history significant for hypertension. Social History Denies any tobacco use. Admits to drinking 10-15 liquor shots per day. Denies any illicit drug use. Physical Exam Vital Signs Vital Signs Date Time Temp Pulse Resp B/P (MAP) Pulse Ox O2 Delivery O2 Flow Rate FiO2 06/20/17 16:15 92 20 152/96 (114) 98 Room Air 06/20/17 15:39 89 22 154/100 (118) 98 Room Air 150/104 (119) 06/20/17 15:35 98.7 85 20 168/98 (121) 98 Room Air 06/20/17 15:33 99 Room Air 06/20/17 14:39 99 Room Air 06/20/17 14:30 98.5 95 24 154/109 (124) 99 Physical Exam GENERAL: This is a well-nourished, well-developed female patient, sitting up in bed with presence of tremors. In no apparent distress. SKIN: No rashes, ecchymoses or lesions. Warm and dry. HEAD: Atraumatic. Normocephalic. EYES: Pupils equal round and reactive. Extraocular motions intact. No scleral icterus. No injection or drainage. ENT: Nose without bleeding, purulent drainage or septal hematoma. Throat without erythema, tonsillar hypertrophy or exudate. Uvula midline. Airway patent. NECK: Trachea midline. No JVD. Supple. CARDIOVASCULAR: Tachycardic. Without murmurs, gallops, or rubs. RESPIRATORY: Clear to auscultation. Breath sounds equal bilaterally. No wheezes , rales, or rhonchi. GASTROINTESTINAL: Abdomen soft, non-tender, nondistended. No hepato-splenomegaly , or palpable masses. No guarding. MUSCULOSKELETAL: Extremities without clubbing, cyanosis, or edema. No joint tenderness, effusion, or edema noted. NEUROLOGICAL: Awake and alert. Cranial nerves II through XII intact. Motor and sensory grossly within normal limits. Five out of 5 muscle strength in all muscle groups. Normal speech. Laboratory Laboratory Tests Test 06/20/17 15:00 White Blood Count 10.9 Red Blood Count 3.81 Hemoglobin 12.3 Hematocrit 36.5 Mean Corpuscular Volume 95.8 Mean Corpuscular Hemoglobin 32.2 Mean Corpuscular Hemoglobin Concent 33.6 Red Cell Distribution Width 12.7 Platelet Count 285 Mean Platelet Volume 7.3 Neutrophils (%) (Auto) 92.4 Lymphocytes (%) (Auto) 4.0 Monocytes (%) (Auto) 3.4 Eosinophils (%) (Auto) 0.0 Basophils (%) (Auto) 0.2 Neutrophils # (Auto) 10.1 Lymphocytes # (Auto) 0.4 Monocytes # (Auto) 0.4 Eosinophils # (Auto) 0.0 Basophils # (Auto) 0.0 CBC Comment DIFF FINAL Differential Comment Prothrombin Time 10.8 Prothromb Time International Ratio 1.1 Activated Partial Thromboplast Time 22.4 Blood Urea Nitrogen 9 Creatinine 0.74 Random Glucose 187 Total Protein 8.6 Albumin 4.3 Calcium Level 9.2 Magnesium Level 1.6 Alkaline Phosphatase 86 Aspartate Amino Transf (AST/SGOT) 96 Alanine Aminotransferase (ALT/SGPT) 63 Total Bilirubin 2.6 Sodium Level 132 Potassium Level 3.7 Chloride Level 97 Carbon Dioxide Level 19.9 Anion Gap 15 Estimat Glomerular Filtration Rate 92 Total Creatine Kinase 84 Troponin I LESS THAN 0.02 Lipase 294 Urine Opiates Screen NEG Urine Barbiturates Screen NEG Urine Amphetamines Screen NEG Urine Benzodiazepines Screen NEG Urine Cocaine Screen NEG Urine Cannabinoids Screen NEG Ethyl Alcohol Level LESS THAN 3 Result Diagram: 06/20/17 1500 06/20/17 1500 Imaging Last Impressions Chest X-Ray 06/20/17 1451 Signed Impressions: Service Date/Time: Tuesday, June 20, 2017 15:00 - CONCLUSION: 1. No acute cardiopulmonary disease. Ron Louis MD Septic Shock Reassessment Septic shock perfusion: reassessment completed Caprini VTE Risk Assessment Caprini VTE Risk Assessment: No/Low Risk (score <= 1) Caprini Risk Assessment Model Point Value = 1 Point Value = 2 Point Value = 3 Point Value = 5 Age 41-60 Minor surgery BMI > 25 kg/m2 Swollen legs Varicose veins or History of unexplained or recurrent spontaneous Oral contraceptives or hormone replacement Sepsis (< 1 month) Serious lung disease, including pneumonia (< 1 month) Abnormal pulmonary function Acute myocardial infarction Congestive heart failure (< 1 month) History of inflammatory bowel disease Medical patient at bed rest Age 61-74 Arthroscopic surgery Major open surgery (> 45 min) Laparoscopic surgery (> 45 min) Malignancy Confined to bed (> 72 hours) Immobilizing plaster cast Central venous access Age >= 75 History of VTE Family history of VTE Factor V Leiden Prothrombin 53711C Lupus anticoagulant Anticardiolipin antibodies Elevated serum homocysteine Heparin-induced thrombocytopenia Other congenital or acquired thrombophilia Stroke (< 1 month) Elective arthroplasty Hip, pelvis, or leg fracture Acute spinal cord injury (< 1 month) Prophylaxis Regimen Total Risk Factor Score Risk Level Prophylaxis Regimen 0-1 Low Early ambulation 2 Moderate Order ONE of the following: *Sequential Compression Device (SCD) *Heparin 5000 units SQ BID 3-4 Higher Order ONE of the following medications: *Heparin 5000 units SQ TID *Enoxaparin/Lovenox 40 mg SQ daily (WT < 150 kg, CrCl > 30 mL/min) *Enoxaparin/Lovenox 30 mg SQ daily (WT < 150 kg, CrCl > 10-29 mL/min) *Enoxaparin/Lovenox 30 mg SQ BID (WT < 150 kg, CrCl > 30 mL/min) AND/OR *Sequential Compression Device (SCD) 5 or more Highest Order ONE of the following medications: *Heparin 5000 units SQ TID (Preferred with Epidurals) *Enoxaparin/Lovenox 40 mg SQ daily (WT < 150 kg, CrCl > 30 mL/min) *Enoxaparin/Lovenox 30 mg SQ daily (WT < 150 kg, CrCl > 10-29 mL/min) *Enoxaparin/Lovenox 30 mg SQ BID (WT < 150 kg, CrCl > 30 mL/min) AND *Sequential Compression Device (SCD) Assessment and Plan Problem List: (1) Alcohol withdrawal ICD Code: F10.239 - Alcohol dependence with withdrawal, unspecified Status: Acute (2) Hypertension ICD Code: I10 - Essential (primary) hypertension Assessment and Plan Ms. Wells is a 32-year-old female patient with a known medical history of alcohol abuse. Patient states that she has been vomiting x 2 days continually. Admits to drinking 10-15 shots of hard liquor per day. Alcohol withdrawal with chronic alcohol abuse With transaminitis, total bilirubin 2.6, AST 96, ALT 63. Patient will be admitted for hospitalization. CIWA protocol has been placed. Monitor for withdrawals. Seizure precautions. Ensure hydration, continue IVF. Zofran available PRN as needed for nausea and vomiting. CBC reviewed and essentially unremarkable, some left shift. Continue to monitor. Afebrile. Liver enzymes elevated suspect secondary to alcohol abuse. Alcohol level less than 3. Toxicity screen negative. CXR reviewed showing no acute cardiopulmonary disease. Counselled on cessation. Hypertension: BP elevated on presentation suspect secondary to alcohol withdrawal, no history of hypertension. Will treat withdrawal symptoms. Continue to monitor BP trends. DVT Prophylaxis: SCDs. Ambulation. This note was transcribed by SAMAN Martinez. I, Dr. Lucía Miller personally performed the history, physical exam, and medical decision making; and confirmed the accuracy of the information in the transcribed note. Authenticated by Dr. Lucía Miller on 06/20/17 at 17:03. Physician Certification 2 Midnight Certification Type: Admission for Inpatient Services Order for Inpatient Services The services are ordered in accordance with Medicare regulations or non- Medicare payer requirements, as applicable. In the case of services not specified as inpatient-only, they are appropriately provided as inpatient services in accordance with the 2-midnight benchmark. Estimated LOS (days): 2 2 days is the estimated time the patient will need to remain in the hospital, assuming treatment plan goals are met and no additional complications. Post-Hospital Plan: Home Problem Qualifiers (1) Alcohol withdrawal: Qualified Codes: F10.239 - Alcohol dependence with withdrawal, unspecified Jenn Phelps Jun 20, 2017 17:12 Lucía Miller MD Jun 20, 2017 17:34
[2017-06-20] MEDS ORDERED: SODIUM CHLORIDE 0.9% FLUSH 10 ML FLUSH IV FLUSH PRN (17:15)
[2017-06-20] MEDS ORDERED: NALOXONE HCL 0.4 MG/ML AMP IV PUSH PRN (17:15)
[2017-06-20] MEDS ORDERED: ENOXAPARIN SODIUM 40 MG/0.4 ML SYRINGE SQ SCH (18:00)
[2017-06-20] MEDS ORDERED: ONDANSETRON HCL 4 MG/2 ML VIAL IVP PRN (18:00)
[2017-06-20] MEDS ORDERED: BISACODYL 10 MG SUPP RECTAL PRN (18:00)
[2017-06-20] MEDS ORDERED: LACTULOSE SYRUP 20 GM/30 ML CUP PO PRN (18:00)
[2017-06-20] MEDS ORDERED: ACETAMINOPHEN 325 MG TAB PO PRN (18:00)
[2017-06-20] MEDS: SODIUM CHLOR 0.9% 1000 ML INJ 1,000 ML IV SCH (18:56)
[2017-06-20] MEDS: SODIUM CHLORIDE 0.9% FLUSH 10 ML FLUSH IV FLUSH SCH (20:23)
[2017-06-20] MEDS: DOCUSATE SODIUM 50 MG/SENNA 8.6 MG TAB PO SCH (20:23)
[2017-06-20] MEDS ORDERED: SENNOSIDES 8.6 MG TAB PO PRN (21:00)
[2017-06-20] MEDS ORDERED: MAGNESIUM HYDROXIDE SUSP 30 ML CUP PO PRN (21:00)
[2017-06-21] VITALS: BP 134/94; PULSE 72; RESP 20; TEMP 97.4; O2SAT 98
[2017-06-21 04:00] VITALS: RESP 18
[2017-06-21] MEDS: SODIUM CHLOR 0.9% 1000 ML INJ 1,000 ML IV SCH (04:03)
[2017-06-21 07:13] LABS: AUTOMATED NEUTROPHIL # 3.4 TH/MM3 (1.8-7.7); BASOPHIL % 0.8 % (0.0-2.0); EOSINOPHIL % 0.7 % (0.0-4.0); HEMATOCRIT 33.9 % (35.0-46.0); HEMOGLOBIN 10.8 GM/DL (11.6-15.3); LYMPH % 27.2 % (9.0-44.0); LYMPHOCYTE # 1.4 TH/MM3 (1.0-4.8); MEAN CELL VOLUME 96.3 FL (80.0-100.0); MEAN CORPUSCULAR HEMOGLOBIN 30.8 PG (27.0-34.0); MEAN CORPUSCULAR HGB CONC 31.9 % (32.0-36.0); MEAN PLATELET VOLUME 7.6 FL (7.0-11.0); MONO % 8.2 % (0.0-8.0); MONOCYTE # 0.4 TH/MM3 (0-0.9); NEUT % 63.1 % (16.0-70.0); PLATELET COUNT 183 TH/MM3 (150-450); RED BLOOD COUNT 3.52 MIL/MM3 (4.00-5.30); RED CELL DISTRIBUTION WIDTH 12.8 % (11.6-17.2); WHITE BLOOD COUNT 5.2 TH/MM3 (4.0-11.0)
[2017-06-21 07:30] VITALS: BP 125/97; PULSE 87; RESP 20; TEMP 97.5; O2SAT 99
[2017-06-21 08:08] LABS: ALBUMIN 3.2 GM/DL (3.4-5.0); BICARBONATE 25.3 MEQ/L (21.0-32.0); CALCIUM 8.3 MG/DL (8.5-10.1); CREATININE 0.48 MG/DL (0.50-1.00); DIRECT BILIRUBIN ADULT 0.4 MG/DL (0.0-0.2); INDIRECT BILIRUBIN 2.1 MG/DL (0.0-0.8); MAGNESIUM 1.8 MG/DL (1.5-2.5); TOTAL BILIRUBIN ADULT 2.5 MG/DL (0.2-1.0); TOTAL PROTEIN 6.6 GM/DL (6.4-8.2)
[2017-06-21] MEDS: DOCUSATE SODIUM 50 MG/SENNA 8.6 MG TAB PO SCH (08:29)
[2017-06-21] MEDS: SODIUM CHLORIDE 0.9% FLUSH 10 ML FLUSH IV FLUSH SCH (08:29)
[2017-06-21] MEDS ORDERED: FOLIC ACID 1 MG TAB PO SCH (09:00)
[2017-06-21] MEDS ORDERED: MULTIVITAMINS/MINERALS THERAPEUTIC TAB PO SCH (09:00)
[2017-06-21] MEDS ORDERED: POTASSIUM CHLORIDE 20 MEQ CONTROLLED RELEASE TAB PO ONE ×2 (09:00)
[2017-06-21] MEDS ORDERED: THIAMINE HCL 100 MG TAB PO SCH (09:00)
[2017-06-21] MEDS ORDERED: THERM PO (10:31)
[2017-06-21] MEDS ORDERED: CHLO10CA5 PO (10:31)
[2017-06-21] MEDS ORDERED: THIA100 PO (10:31)
[2017-06-21] MEDS ORDERED: FOLI1TAB6 PO (10:31)
--- NOTE | 2017-06-21 10:31 | HHI.DCPOC ---
Discharge Care Plan Goals to Promote Your Health * To prevent worsening of your condition and complications * To maintain your health at the optimal level Directions to Meet Your Goals Take your medications as prescribed Follow your dietary instruction Follow activity as directed Keep your appointments as scheduled Take your immunizations and boosters as scheduled If your symptoms worsen call your PCP, if no PCP go to Urgent Care Center or Emergency Room Smoking is Dangerous to Your Health. Avoid second hand smoke Call the 24-hour hour crisis hotline for domestic abuse at Lucía Miller MD Jun 21, 2017 10:31
--- NOTE | 2017-06-22 13:05 | EKG ---
Date Performed: 06/20/2017 Time Performed: 14:46:43 PTAGE: 32 years EKG: Sinus rhythm WITH SHORT VT INTERVAL LEFT ATRIAL ENLARGEMENT Compared to prior tracing no significant change ABNOR MAL ECG PREVIOUS TRACING : 02/10/2017 17.42 DOCTOR: Doroteo Hopson Interpretating Date/Time 06/22/2017 13:03:59
== END 2017-06-21 11:20 | disposition home or self-care (01) | DRG 897 ==
LOC: PHED 14:21 → PHEDA 15:59 → PH3A 17:55
PROVIDERS: ADMIT Hospitalist; ATTEND Hospitalist
DX: F10.239 Alcohol dependence with withdrawal, unspecified (principal); I10 Essential (primary) hypertension; F32.9 Major depressive disorder, single episode, unspecified; R11.2 Nausea with vomiting, unspecified; F43.10 Post-traumatic stress disorder, unspecified; Z98.82 Breast implant status
CPT/HCPCS: 71010; 80048; 80053; 80076; 80307; 82550; 83690; 83735; 84484; 84703; 85025; 85610; 85730; 93005; 96361; 96374; 96375; J1650; J2060; J2405; J7030